=== PATIENT | male | born 1990 | race Caucasian/White ===

== ENCOUNTER 2016-09-28 07:06 | Emergency (ER) | payer BC ==
[~2016-09-28] VITALS: Ht 193 cm; Wt 146.0 kg
[~2016-09-28 07:06] MED LIST: BACTRIM,SEPT1 TABLET PO; KEFLEX500 MG PO; VICODIN,LORT1 TABLET PO
[2016-09-28 08:13] LABS: HEMATOCRIT 48.6 % (38.0-50.0); MCH 30.5 PG (29.0-34.0); MCHC 35.4 G/DL (30.0-36.0); MCV 86.2 FL (86-99); MEAN PLAT.VOLUME 10.6 uM^3 (9.0-12.4); PLATELET COUNT 344 K/uL (156-360); RBC DIS.WIDTH-CV 12.6 % (11.8-14.6); RBC DIS.WIDTH-SD 39.6 % (39-53); RED BLOOD COUNT 5.64 M/uL (4.00-5.50); WHITE BLOOD COUNT 11.8 K/uL (4.1-10.2)
[2016-09-28 08:38] LABS: ADD MIUA? YES; BILIRUBIN NEGATIVE; BLOOD NEGATIVE; COLOR AMBER ((YELLOW)); GLUCOSE (STRIP) NEGATIVE; KETONES NEGATIVE; LEUKOCYTES NEGATIVE; NITRITE NEGATIVE; PROTEIN (STRIP) 100; SPECIFIC GRAVITY 1.021 (1.000-1.030); UROBILINOGEN 0.2 MG/DL (0.2-1.0)
[2016-09-28 08:41] LABS: BACTERIA NONE SEEN /HPF; EPITHELIAL CELLS NONE SEEN /HPF; HYALINE CASTS 0-5 /LPF; MUCUS TRACE /LPF; RED BLOOD CELLS 0-5 /HPF (0-5); WHITE BLOOD CELLS 0-5 /HPF (0-5)
[2016-09-28 08:45] LABS: ALKALINE PHOSPHATASE 41 IU/L (3-129); ANION GAP 16 MEQ/L (2-14); CHLORIDE 99 MEQ/L (99-109); GFR ESTIMATE (CALCULATED) > 59 mL/min/; GLUCOSE 103 mg/dL (70-99); SAMPLE HEMOLYSIS CHECK 0; SAMPLE ICTERIC CHECK 0; SAMPLE LIPEMIA CHECK 0; SODIUM 138 MEQ/L (136-147); TOTAL BILIRUBIN 1.2 MG/DL (0.0-1.0); UREA NITROGEN (BUN) 11 mg/dL (9-23)
[2016-09-28 10:39] LABS: LIPASE 9 U/L (1.0-51.0)
[2016-09-28] MEDS ORDERED: ZOFRAN ODT4 MG PO (10:41)
[2016-09-28] MEDS ORDERED: NEXIUM40 MG PO (10:41)
[2016-09-28] MEDS ORDERED: BENTYL20 MG PO (10:41)
[2016-09-28 12:00] VITALS: BP 140/87
== END 2016-09-28 12:01 | disposition home or self-care (01) ==
LOC: EME 07:06
PROVIDERS: Nurse Practitioner Family
DX: K76.0 Fatty (change of) liver, not elsewhere classified (principal); R10.84 Generalized abdominal pain; R11.2 Nausea with vomiting, unspecified; R19.7 Diarrhea, unspecified; I10 Essential (primary) hypertension; F17.200 Nicotine dependence, unspecified, uncomplicated
CPT/HCPCS: 74177; 80053; 81003; 83690; 85027; 87493; 87506; 99281; 99284; C9113; J1885; J7030

== ENCOUNTER 2017-02-15 23:54 | Emergency (ER) | payer OTHER ==
[~2017-02-15] VITALS: Ht 193 cm; Wt 152.0 kg
[~2017-02-15 23:54] MED LIST changes: +BENTYL20 MG PO; +NEXIUM40 MG PO; +ZOFRAN ODT4 MG PO
[2017-02-16] MEDS ORDERED: ZOFRAN ODT4 MG PO (02:32)
[2017-02-16] MEDS ORDERED: MOTRIN800 MG PO (02:32)
[2017-02-16] MEDS ORDERED: PERCOCET 5/31 TABLET PO (02:32)
[2017-02-16] MEDS ORDERED: KEFLEX500 MG PO (03:44)
[2017-02-16 03:53] VITALS: BP 149/86
== END 2017-02-16 03:54 | disposition home or self-care (01) ==
LOC: EME 23:54
DX: T24.211A Burn of second degree of right thigh, initial encounter (principal); T21.25XA Burn of second degree of buttock, initial encounter; T31.0 Burns involving less than 10% of body surface; X16.XXXA Contact with hot heating appliances, radiators and pipes, initial encounter; I10 Essential (primary) hypertension; F17.200 Nicotine dependence, unspecified, uncomplicated
CPT/HCPCS: 99281; 99285; J0690; J1885; J2270; J2405; J3010; J7030

== ENCOUNTER 2017-02-23 04:24 | Emergency (ER) | payer OTHER ==
[~2017-02-23] VITALS: Ht 193 cm; Wt 152.9 kg
[~2017-02-23 04:24] MED LIST changes: +MOTRIN800 MG PO; +PERCOCET 5/31 TABLET PO
[2017-02-23 04:28] VITALS: BP 159/98
== END 2017-02-23 07:35 | disposition left against medical advice (07) ==
LOC: EME 04:24
DX: Z53.21 Procedure and treatment not carried out due to patient leaving prior to being seen by health care provider (principal)
CPT/HCPCS: 80053; 83605; 85025; 87040